=== PATIENT | female | born 1960 | race Caucasian/White ===

== ENCOUNTER → 2017-01-22 | Outpatient (CLI) | payer OTHER ==
--- NOTE | 2017-01-23 09:44 | REP ---
MRI PELVIS WITH AND WITHOUT CONTRAST: TECHNIQUE: Multiple sequences obtained in the axial, sagittal and coronal planes prior to and following the intravenous administration of 12.5 mL Gadolinium. Correlation made with CT 01/17/2017 and ultrasound 01/10/2017. Uterine length is approximately 11.5 cm. Uterus has an arcuate configuration. Maximum endometrial thickness in the fundus is 1.1 cm. Junctional zone in the fundus has a somewhat lobulated margin with two hypointense areas of signal projecting into the myometrium in the region of the fundus each slightly less than 1 cm in diameter possibly representing focal adenomyosis. There is a fundal fibroid which measures 1.5 cm in diameter. This is in the midline. A left fundal fibroid measures about 8 mm in diameter along the surface of the uterus. The uterus is retroverted. Endometrial thickness is maximally 1.1 cm. Multiple nabothian cysts are seen in the region of the cervix. Right ovary is normal. Left ovary demonstrates an oval cyst which demonstrates thin orta and two thin internal septations. The cyst measures 5.3 x 4.4 x 3.6 cm. There is minimal thin linear enhancement of the orta of the cyst. There is no internal mural nodule identified. This most likely represents a benign neoplasm. However, consider surgical evaluation. No adenopathy is seen in the pelvis. There is a tiny amount of free fluid. Subcentimeter subchondral cystic change is seen in the inferior left sacrum. A benign appearing subchondral cyst approximately 1 cm in diameter is seen in the right iliac bone along the sacroiliac joint. 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 A dominant fundal fibroid measures 1.5 cm in diameter. A smaller subcentimeter fibroid is seen on the left surface of the fundus of the uterus. Endometrial thickness is maximally 1.1 cm. I suspect a few focal areas of adenomyosis in the fundus. Oval cyst of the left ovary demonstrates thin orta and two thin internal septations with a maximum diameter of 5.3 cm. This most likely represents benign neoplasm. Consider surgical evaluation. Signed by David Hoover MD 01/23/2017 05:02 P
== END ==
LOC: M RAD 15:56
PROVIDERS: ATTEND Obstetrics & Gynecology Gynecology
DX: D25.1 Intramural leiomyoma of uterus (principal)